=== PATIENT | male | born 1975 | race Caucasian/White ===

== ENCOUNTER 2019-05-24 14:05 | Emergency (ER) | payer BC ==
[2019-05-24] MEDS ORDERED: Fentanyl 100 MCG/2 ML VIAL ONE (14:34)
--- NOTE | 2019-05-24 14:49 | RAD ---
3 VIEW LEFT SHOULDER: Date: 05/24/19 INDICATION: Injury, pain. FINDINGS: Mild osteoarthritis is present. No fracture or dislocation. IMPRESSION: No acute osseous abnormality of left shoulder. POS: [facility]
--- NOTE | 2019-05-24 14:50 | RAD ---
FRONTAL VIEW CHEST: 05/24/19 INDICATION: Pain, injury. FINDINGS: The lungs are clear. No effusion or pneumothorax. The cardiac silhouette accentuated by portable tech nique. IMPRESSION: No focal consolidation. POS: [facility]
[2019-05-24] MEDS ORDERED: Diazepam 5 MG TAB ONE (15:35)
== END 2019-05-24 15:48 | disposition home or self-care (01) ==
LOC: ERS 14:05
DX: S16.1XXA Strain of muscle, fascia and tendon at neck level, initial encounter (principal); S40.012A Contusion of left shoulder, initial encounter; E78.5 Hyperlipidemia, unspecified; Z79.899 Other long term (current) drug therapy; V43.52XA Car driver injured in collision with other type car in traffic accident, initial encounter
CPT/HCPCS: 71045; 96374; J3010

== ENCOUNTER 2019-05-30 07:52 | Emergency (ER) | payer BC ==
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
== END 2019-05-30 13:53 | disposition home or self-care (01) ==
LOC: SCSER 07:52
DX: M54.12 Radiculopathy, cervical region (principal); M50.222 Other cervical disc displacement at C5-C6 level; F32.9 Major depressive disorder, single episode, unspecified; E78.5 Hyperlipidemia, unspecified; G40.909 Epilepsy, unspecified, not intractable, without status epilepticus; Z79.891 Long term (current) use of opiate analgesic; Z79.899 Other long term (current) drug therapy
CPT/HCPCS: 72141

== ENCOUNTER 2019-06-06 12:32 | Outpatient (CLI) | payer BC ==
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
--- NOTE | 2019-06-06 14:03 | CT ---
Cervical spine CT without contrast: 05/27/2019 COMPARISON: None HISTORY: Cervical myelopathy, trauma, neck pain TECHNIQUE: Axial CT imaging obtained at 2 mm intervals through the cervical spine with coronal and sa gittal reformatted imaging. FINDINGS: The C1 ring is intact. The craniocervical junction, the atlantoaxial interspace, the cervic othoracic junction, the occipital condyles, the dens, and the C1-2 articulation appear within normal limits. There is mild degenerative change at the atlantoaxial interspace. There is no anterolisthesis or retrolisthesis noted within the cervical spine. There is no prevertebral soft tissue swelling. No displaced fracture or evidence of dislocation is seen. The imaged lung apices are unremarkable. IMPRESSION: No acute findings.
== END 2019-06-06 12:33 | disposition home or self-care (01) ==
LOC: TBSIIMAG 12:32
PROVIDERS: ATTEND Neurological Surgery
DX: S09.90XA Unspecified injury of head, initial encounter (principal); M50.00 Cervical disc disorder with myelopathy, unspecified cervical region; M47.12 Other spondylosis with myelopathy, cervical region
CPT/HCPCS: 70450; 72040; 72125